=== PATIENT | female | born 1990 | race African-American/Black ===

== ENCOUNTER → 2016-11-02 | Outpatient (CLI) | payer OTHER ==
[~2016-11-02] MED LIST: ATR25 PO
[2016-11-02 14:02] LABS: HEMATOCRIT 42.8 % (37-47); MEAN CELL VOLUME 88.6 fL (80-100); MEAN CORPUSCULAR HEMOGLOBIN 31.9 pg (25-34); MEAN PLATELET VOLUME 12.2 fL (7.4-10.4); PLATELET COUNT 272 K/uL (130-400); RED BLOOD COUNT 4.83 M/uL (4.2-5.4)
[2016-11-02 14:31] LABS: COMPLETE YES; EOSINOPHIL % 1.8 %; HYPERSEGMENTED POLYS 1+; LYMPH ABS # 2.27 K/uL (1.2-3.4); LYMPHOCYTE % 39.8 %; NEUTROPHILS % 35.4 %; VARIANT LYM ABS # 0.86 K/uL
[2016-11-02 14:41] LABS: ALT/SGPT 18 U/L (12-78); AST/SGOT 13 U/L (15-37); BLOOD UREA NITROGEN 12 mg/dl (7-18); BUN/CREATININE RATIO 13.5 (10-20); CALCIUM 9.4 mg/dl (8.5-10.1); CARBON DIOXIDE 26 mmol/L (21-32); CHLORIDE 108 mmol/L (98-107); CREATININE 0.87 mg/dl (0.60-1.20); GLUCOSE 82 mg/dl (70-99); POTASSIUM 3.8 mmol/L (3.5-5.1); SODIUM 138 mmol/L (136-145)
[2016-11-02 14:52] LABS: ALB/GLOB RATIO 0.8 (0.9-2); ALKALINE PHOSPHATASE 79 U/L (45-117)
== END | disposition home or self-care (01) ==
LOC: C.LABBC 11:57
PROVIDERS: ATTEND Physician Assistant
DX: R63.4 Abnormal weight loss (principal)

== ENCOUNTER → 2016-11-08 | Outpatient (CLI) | payer OTHER ==
--- NOTE | 2016-11-08 08:56 | DIAGNOSTIC IMAGING REPORT ---
ABDOMEN COMPLETE (US) CLINICAL HISTORY: R10.9 Abdominal pain COMPARISON STUDY: No previous studies for comparison. FINDINGS: The liver appears sonographically normal. The gallbladder appears sonographically normal. No peripancreatic lesions are visualized. There is no ductal dilatation. The common buttock measures 3 mm pure the spleen measures 7.1 cm in length. No splenic masses are visualized. The right kidney measures 9 cm in length. The left kidney measures 9.1 cm in length. There are no focal renal masses. There is no hydronephrosis. There is no abdominal aortic dilatation. The IVC appears unremarkable. There is a very small pericardial effusion. IMPRESSION: 1. Incidental very small pericardial effusion. Otherwise normal upper abdominal ultrasound. Electronically signed by: Brendan Lr M.D. 11/08/2016 8:55 AM Dictated Date/Time: 11/08/2016 8:52 AM
== END | disposition home or self-care (01) ==
LOC: C.ULTRBC 08:07
PROVIDERS: ATTEND Internal Medicine
DX: R10.9 Unspecified abdominal pain (principal); I31.3 Pericardial effusion (noninflammatory)

== ENCOUNTER 2024-08-13 13:13 | Observation (INO) ==
--- NOTE | 2024-08-13 13:48 | Emergency Department Note ---
Impression & Plan Intractable vomiting with nausea, Abnormal finding of diagnostic imaging ED Provider Note CHIEF COMPLAINT: Abdominal pain HISTORY OF PRESENTING ILLNESS: The patient is a 33-year-old female who arrives to the emergency department for evaluation of abdominal pain with nausea and vomiting since Monday. The patient had a recent ZIPPER JOINER procedure to remove a polyp. She reports since that time she has had worsening, abdominal pain, nausea and vomiting. She states she has never had issues with anesthesia in the past, however, after this event she has had abdominal fullness, LLQ pain, and persistent nausea despite attempts at home with medications. She denies fever, dysuria, vaginal bleeding, or vaginal discharge. She is well appearing, otherwise. REVIEW OF SYSTEMS: See HPI for pertinent positives and pertinent negatives. ALLERGIES: See below MEDICATIONS: See below PAST MEDICAL HISTORY: See below PHYSICAL EXAM: VITALS: Vitals are noted on the nurse's note and reviewed by myself. Vital signs stable. GENERAL: 33-year-old female, in no acute distress, nondiaphoretic, well- developed well-nourished. SKIN: The skin was without rashes, erythema, edema, or bruising. HEAD: Normocephalic atraumatic. HEART: Regular rate and rhythm without murmurs gallops or rubs. LUNGS: Clear to auscultation bilaterally without wheezes, rales or rhonchi. No retractions or accessory muscle use. ABDOMEN: Positive bowel sounds x 4. Soft, TTP, RUQ, LLQ with no rebound tenderness or guarding. NEURO: Patient was alert and oriented to person place and time. No focal neurological deficits. DIFFERENTIAL DIAGNOSIS: Appendicitis, ovarian cyst, ovarian torsion, ectopic , TOA, PID, infections, diverticulitis, UTI, obstruction, mesenteric ischemia, aortic pathology, inflammatory bowel disease, renal colic, PUD, pancreatitis, biliary pathology, hernia, volvulus, constipation, anesthesia complication, postoperative complication, as well as other pathologies. ED COURSE AND MEDICAL DECISION MAKING: MEDICATIONS GIVEN: 1 L NSS bolus, 4 mg IV Zofran, 1.25 mg IV droperidol. MONITOR: Continuous hogshead head matcher: Order was placed for continuous hogshead head matcher. Patient was placed on the hogshead head matcher and continuous pulse ox. Patient was noted to be in normal sinus rhythm at an initial rate of 86 bpm per my interpretation. INTERPRETATION OF LABS: I interpreted the labs with full lab results as below in the lab section of this note. Pertinent lab results discussed in the MDM section below. INTERPRETATION OF IMAGING: Imaging studies were interpreted by myself and read by radiology as per the imaging section of this note. MDM SUMMARY: The patient is a pleasant, 33-year-old female who arrives to the emergency department for evaluation of the above-stated complaint. A saline lock was established, CBC, CMP, lipase, lactic acid, serum , urinalysis were obtained. Lab work shows no leukocytosis, no anemia. CMP is unremarkable. negative. Lipase negative. Lactate 1.2. Urinalysis shows no concerning signs of infection. CT imaging of the abdomen and pelvis with IV contrast was obtained which shows heterogeneous contrast-enhancement of the liver with possible periportal edema, appearing in the interval and allowing for single phase of imaging. Concern for hepatitis is noted per radiology, recommending a right upper quadrant abdominal ultrasound. There is also notation of small bordering on moderate bilateral pleural effusions. The patient's nausea was not controlled during her stay despite IV medication. I do believe the patient requires admission for intractable nausea and vomiting, as well as further evaluation of CT imaging findings. I spoke with Dr. Langley, from GI, who stated he believes the nausea and vomiting is anesthesia associated, and not related to CT imaging findings, however he is agreeable to consulting on the patient during her admission. I spoke with the [facility] hospitalist group, who agreed to accept and evaluate the patient for admission. Please refer to their documentation for further patient workup and care. DIAGNOSIS: Intractable nausea with vomiting, abnormal diagnostic imaging The chart was completed utilizing [employer] Speech voice recognition software. Grammatical errors, random word insertions, pronoun errors, and incomplete sentences are an occasional consequence of this system due to software limitations, ambient noise, and hardware issues. Any formal questions or concerns about the content, text, or information contained within the body of this dictation should be directly addressed to the provider for clarification. Past Med/Surg History Problem List (Updated 08/21/24 @ 07:15 by TED Corey) Abnormal finding of diagnostic imaging (Acute) Abnormal liver CT Intractable vomiting with nausea (Acute) Intractable left lower quadrant abdominal pain Post-operative complication Vitamin B12 deficiency Insomnia Chronic diarrhea MDD (major depressive disorder), recurrent episode, moderate Esophageal dysphagia Migraine Asthma (Chronic) Encounter for pre-operative examination GERD (gastroesophageal reflux disease) Medical History Migraine Chronic diarrhea GERD (gastroesophageal reflux disease) HIV (human immunodeficiency virus infection) [facility] 07[facility]24, "Diagnosed with HIV in .. Recent blood work shows an improvement with a CD4 count. Reports no major changes since starting treatment.. Will continue current HIV medication regimen." Depression PID (acute pelvic inflammatory disease) HPV test positive (08/2021) Cytology wnl/HR HPV +/HPV 16 and 18 negative per records Anxiety Environmental and seasonal allergies Dust allergy Acne Esophageal dysphagia Improved with dilatation Asthma Surgical History Slow to wake up after anesthesia After last colonoscopy/EGD History of D&C History of esophageal dilatation (~09/2019) History of esophagogastroduodenoscopy (EGD) Family History Grandmother (Maternal) Family hx of colon cancer Colorectal cancer Grandmother Cancer Malignant neoplasm of stomach Other No family history of adverse response to anesthesia Denies family history of Ovarian cancer Prostate cancer Myocardial infarction Breast cancer Lung cancer Social History Smoking Status: Never smoker Second Hand Exposure: No; Do You Dip or Chew Tobacco: No; Hx Alcohol Use: Yes Alcohol type: wine Alcohol Intake Frequency: Monthly or Less Hx Substance Use: No Preferred Language: Australian Communication Ability: Effective Visual Impairment: Limited Hearing Ability: Normal Didactic Instructor Required: No Beliefs That Will Affect Care: None marital status: / Current Living Situation: Parent Current Living Situation Comment: Lives with Mother. current occupational status: employed current occupation: [employer] Feels Safe at Home: Yes Childhood Exposure to Second-Hand Smoke: No Diet: regular caffeine: No Dental Care, Regularly: Yes Physical Activity Frequency: 5-6 Times per Week Physical Activity Frequency Comment: walking Seatbelt Use: always Sunscreen Use: Yes Do you think of yourself as: straight/heterosexual Assistive Devices: None Allergies Allergies Allergy/AdvReac Type Severity Reaction Status Date / Time clams Allergy Severe Rash Verified 08/19/24 14:34 No Known Drug Intolerances AdvReac Unknown Verified 08/19/24 14:34 Home Meds Home Medications Medication Instructions Recorded Confirmed lactobacillus combination no.9 4 4 cell PO DAILY 12/08/21 08/19/24 billion cell capsule (Adult 50 Plus Probiotic) mometasone-formoterol HFA 200 2 puff inhalation BID 10/25/23 08/19/24 mcg-5 mcg/actuation aerosol inhaler Previous Rx's Medication Instructions Recorded cetirizine 10 mg tablet 10 mg PO QAM #90 tabs 12/20/22 albuterol sulfate 90 mcg/actuation 1 - 2 puff inhalation Q4 PRN 06/30/23 aerosol inhaler Shortness Of Breath #6.7 grams melatonin 3 mg capsule 3 mg PO HS PRN sleep #1 cap 06/30/23 fluticasone propionate 50 2 spray intranasal DAILY PRN 08/03/23 mcg/actuation nasal allergy symptoms #16 grams spray,suspension (Flonase Allergy Relief) mecobalamin (vitamin B12) 1,000 1,000 mcg PO DAILY #30 tabs 10/23/23 mcg chewable tablet cyproheptadine 4 mg tablet 4 mg PO BID #180 tabs 02/23/24 clindamycin phosphate 1 % lotion 1 applic topical DAILY #60 mL 05/20/24 cabotegravir ER 400 mg/2 See Rx Instructions IM .COMPLEX #4 07/02/24 mL-rilpivirine ER 600 mg/2mL IM mL suspension,ER (Cabenuva) pantoprazole 40 mg tablet,delayed 40 mg PO QAM PRN gerd #90 tabs 07/02/24 release rizatriptan 10 mg disintegrating 10 mg PO Q2H PRN migraine headache 07/02/24 tablet (Maxalt-WORD PROCESSOR) #12 tabs sertraline 100 mg tablet 200 mg (2 x 100 mg) PO DAILY #180 07/02/24 tabs ondansetron HCl 4 mg tablet 4 mg PO DAILY PRN nausea and 08/15/24 vomiting #30 tabs Results & Data (ED) Vital Signs Vital Signs - 24 hr 08/13/24 13:17 08/13/24 13:31 08/13/24 13:36 Temperature 36.5 C Temperature Source Temporal Artery Scan Pulse Rate 86 63 Pulse Rate [Apical] 69 Pulse Strength Normal Respiratory Rate 17 16 Respiratory Effort / Characteristics Non-Labored Spontaneous Non-Labored Respiratory Depth Normal Normal Respiratory Pattern Regular Blood Pressure 134/85 Blood Pressure [Left Arm] 114/72 Blood Pressure Mean 101 Blood Pressure Mean [Left Arm] 86 Blood Pressure Position Sitting Pulse Oximetry 100 97 Oxygen Delivery Method Room Air Room Air Sepsis Recent Fever Within 48 Hours No Sepsis New/Unexplained Change in Mental Status No Sepsis Action Taken by Nursing No Action Required 08/13/24 13:54 Temperature Temperature Source Pulse Rate 57 L Pulse Rate [Apical] Pulse Strength Respiratory Rate Respiratory Effort / Characteristics Respiratory Depth Respiratory Pattern Blood Pressure Blood Pressure [Left Arm] Blood Pressure Mean Blood Pressure Mean [Left Arm] Blood Pressure Position Pulse Oximetry 97 Oxygen Delivery Method Room Air Sepsis Recent Fever Within 48 Hours Sepsis New/Unexplained Change in Mental Status Sepsis Action Taken by Assisted Medications Current Medication List: was personally reviewed by me Laboratory Data Attestation: I reviewed the patient's lab results. 08/14/24 05:28 08/14/24 05:28 Lab Results 08/13/24 08/13/24 08/13/24 Range/Units 13:30 14:13 15:28 WBC 6.38 (4.8-10.8) K/ul RBC 4.73 (4.20-5.40) M/uL Hgb 15.2 (12.0-16.0) g/dl Hct 41.9 (37.0-47.0) % MCV 88.6 (80.0-100.0) fL MCH 32.1 (25.0-34.0) pg MCHC 36.3 H (32.0-36.0) g/dL RDW Std Deviation 41.7 (36.4-46.3) fL RDW Coeff of Ashia 12.8 (11.5-14.5) % Plt Count 276 (130-400) K/uL MPV 12.0 (9.4-12.4) fL Immature Gran % (Auto) 0.6 % Neut % (Auto) 29.3 % Lymph % (Auto) 49.2 % [place] % (Auto) 7.4 % Eos % (Auto) 12.4 % Baso % (Auto) 1.1 % Neut # (Auto) 1.87 (1.40-6.50) K/uL Lymph # (Auto) 3.14 (1.20-3.40) K/uL [place] # (Auto) 0.47 (0.11-0.59) K/uL Eos # (Auto) 0.79 H (0.00-0.50) K/uL Baso # (Auto) 0.07 (0.00-0.20) K/uL Immature Gran # (Auto) 0.04 (0.01-0.20) K/uL Sodium 138 (136-145) mmol/L Potassium 3.5 (3.5-5.1) mmol/L Chloride 104 (98-107) mmol/L Carbon Dioxide 27 (21-32) mmol/L Anion Gap 7 (3-11) BUN 12 (6-23) mg/dl Creatinine 0.82 (0.6-1.2) mg/dl Est Cr Clr Drug Dosing 80.0 ml/min eGFR 96.20 BUN/Creatinine Ratio 14.6 (10-20) Glucose 78 (70-99(Fasting)) mg/dl Lactate 1.2 (0.4-2.0) mmol/L Calcium 9.7 (8.6-10.3) mg/dl Magnesium 1.9 (1.7-2.4) mg/dl Total Bilirubin 0.4 (0.2-1.0) mg/dl AST 14 (13-39) U/L ALT 14 (7-52) U/L Alkaline Phosphatase 91 (34-104) U/L Total Protein 7.9 (6.0-8.3) gm/dl Albumin 4.2 (3.4-5.0) gm/dl Globulin 3.7 (2.5-4.0) gm/dl Albumin/Globulin Ratio 1.1 (0.9-2) Lipase 30 (11-82) U/L HCG, Qual Negative (Negative) Urine Color Yellow Urine Appearance Clear (Clear) Urine pH 6.0 (4.5-7.5) Ur Specific [place] 1.028 (1.000-1.030) Urine Protein Negative (Negative) Urine Glucose (UA) Negative (Negative) Urine Ketones Trace H (Negative) Urine Blood Negative (Negative) Urine Nitrite Negative (Negative) Urine Bilirubin Negative (Negative) Urine Urobilinogen Negative (Negative) Ur Leukocyte Esterase Negative (Negative) Urine Comment Administered Medications Discontinued Medications Droperidol (Droperidol 5 Mg/2 Ml Vial) 1.25 mg IV ONE STA Stop: 08/13/24 19:12 Last Admin: 08/13/24 19:19 Dose: 1.25 mg Documented By: ANSLEY Fluticasone/Vilanterol (Fluticasone/Vilanterol 200/25mcg 14 Puffs/Inhaler) 1 puffs INH DAILY AYLIN Stop: 09/13/24 08:59 Last Admin: 08/15/24 08:53 Dose: 1 puffs Documented By: Admin: 08/14/24 08:46 Dose: 1 puffs Documented By: PITER Sodium Chloride (Nss) 1,000 mls @ 999 mls/hr IV .Q1H1M ONE Stop: 08/13/24 14:53 Last Infusion: 08/13/24 15:17 Dose: Infused Documented By: Admin: 08/13/24 14:12 Dose: 999 mls/hr Documented By: TRUNG Sodium Chloride (Nss) 1,000 mls @ 999 mls/hr IV .Q1H1M ONE Stop: 08/13/24 20:11 Last Infusion: 08/14/24 00:05 Dose: Infused Documented By: Admin: 08/13/24 19:20 Dose: 999 mls/hr Documented By: ANSLEY Lactated Ringer's (Lr) 1,000 mls @ 100 mls/hr IV .Q10H AYLIN Stop: 08/14/24 16:44 Last Infusion: 08/14/24 18:45 Dose: Infused Documented By: Admin: 08/14/24 08:45 Dose: 100 mls/hr Documented By: Infusion: 08/14/24 08:25 Dose: Infused Documented By: Admin: 08/13/24 22:25 Dose: 100 mls/hr Documented By: SANDEE Pantoprazole Sodium (Protonix) 40 mg in 10 mls @ 5 mls/min IV DAILY AYLIN Stop: 09/13/24 08:59 Last Admin: 08/15/24 08:53 Dose: 5 mls/min Documented By: Admin: 08/14/24 08:46 Dose: 5 mls/min Documented By: PITER Prochlorperazine 5 mg/ Syringe 5 mls @ 5 mls/min IV ONE ONE Stop: 08/14/24 16:38 Last Admin: 08/14/24 17:48 Dose: 5 mls/min Documented By: PITER Prochlorperazine 5 mg/ Syringe 5 mls @ 5 mls/min IV Q6H PRN PRN Reason: Nausea And Vomiting Stop: 09/13/24 23:40 Last Admin: 08/15/24 09:05 Dose: 5 mls/min Documented By: PITER Ioversol (Optiray 320 100ml) 90 ml IV ONCE ONE Stop: 08/13/24 15:55 Last Admin: 08/13/24 15:55 Dose: 90 ml Documented By: BUD Melatonin (Melatonin 3 Mg Tab) 3 mg PO HS PRN PRN Reason: Sleep Stop: 09/13/24 00:02 Last Admin: 08/14/24 23:50 Dose: 3 mg Documented By: LOGAN Morphine Sulfate (Morphine Sulfate 4 Mg/Ml 1 Ml Carp\\Vial) 4 mg IV NOW STA Stop: 08/13/24 13:54 Last Admin: 08/13/24 14:12 Dose: 4 mg Documented By: TRUNG Ondansetron HCl (Ondansetron Inj 2 Mg/Ml 2 Ml Vial) 4 mg IV NOW STA Stop: 08/13/24 13:54 Last Admin: 08/13/24 14:11 Dose: 4 mg Documented By: TRUNG Ondansetron HCl (Ondansetron Inj 2 Mg/Ml 2 Ml Vial) 4 mg IV NOW STA Stop: 08/13/24 16:18 Last Admin: 08/13/24 16:21 Dose: 4 mg Documented By: TRUNG Ondansetron HCl (Ondansetron Inj 2 Mg/Ml 2 Ml Vial) 4 mg IV Q6H PRN PRN Reason: Nausea And Vomiting Stop: 09/13/24 00:02 Last Admin: 08/14/24 18:48 Dose: 4 mg Documented By: Admin: 08/14/24 11:40 Dose: 4 mg Documented By: Admin: 08/14/24 00:59 Dose: 4 mg Documented By: DAT Polyethylene Glycol (Polyethylene (Miralax) 17 Gm Pack) 17 gm PO DAILY AYLIN Stop: 09/13/24 08:59 Last Admin: 08/15/24 09:02 Dose: 17 gm Documented By: Admin: 08/14/24 08:45 Dose: 17 gm Documented By: PITER Sertraline HCl (Sertraline Hcl 100 Mg Tablet) 200 mg PO DAILY AYLIN Stop: 09/13/24 08:59 Last Admin: 08/15/24 08:53 Dose: 200 mg Documented By: Admin: 08/14/24 08:46 Dose: 200 mg Documented By: PITER Imaging Data Attestation: I personally reviewed and interpreted this imaging study as follows: Discharge Plan Visit Data Chief Complaint: Abdominal Pain Stated Complaint: ABD PAIN,VOMITING,WEAKNESS ED Provider: Kam Regan ED Midlevel Provider: Verona Soni Discharge Problem: Intractable vomiting with nausea, Abnormal finding of diagnostic imaging Patient Disposition: Admitted As Inpatient Condition: Fair Discharge Instructions Interventions: ED Discharge Assessment Last Done: 08/13/24 23:15
[2024-08-13 14:07] LABS: Basophils # (auto) 0.07 K/uL (0.00-0.20); Basophils % (auto) 1.1 %; Eosinophils # (auto) 0.79 K/uL (0.00-0.50); Eosinophils % (auto) 12.4 %; Hematocrit (blood only) 41.9 % (37.0-47.0); Hemoglobin 15.2 g/dl (12.0-16.0); Immature Granulocytes # (auto) 0.04 K/uL (0.01-0.20); Immature Granulocytes % (auto) 0.6 %; Lymphocytes # (auto) 3.14 K/uL (1.20-3.40); Lymphocytes % (auto) 49.2 %; Mean Corpuscular Hemoglobin 32.1 pg (25.0-34.0); Mean Corpuscular Hgb Conc 36.3 g/dL (32.0-36.0); Mean Corpuscular Volume 88.6 fL (80.0-100.0); Monocytes # (auto) 0.47 K/uL (0.11-0.59); Monocytes % (auto) 7.4 %; Neutrophils # (auto) 1.87 K/uL (1.40-6.50); Neutrophils % (auto) 29.3 %; Platelet Count 276 K/uL (130-400); RDW Coefficient of Variation 12.8 % (11.5-14.5); RDW Standard Deviation 41.7 fL (36.4-46.3); Red Blood Count 4.73 M/uL (4.20-5.40); White Blood Count 6.38 K/ul (4.8-10.8)
[2024-08-13] MEDS: ONDANSETRON INJ 2 MG/ML 2 ML VIAL IV STA ×2 (14:11→16:21)
[2024-08-13] MEDS: MoRPHine SULFATE 4 MG/ML 1 ML CARP\\VIAL IV STA (14:12)
[2024-08-13] MEDS: SODIUM CHLORIDE 0.9% 1,000 ML IV ONE ×2 (14:12→19:20)
[2024-08-13 14:23] LABS: Pregnancy Test, Serum Negative (Negative)
[2024-08-13 14:26] LABS: Albumin Globulin Ratio 1.1 (0.9-2); Albumin Level 4.2 gm/dl (3.4-5.0); BUN Creatinine Ratio 14.6 (10-20); Bilirubin,Total 0.4 mg/dl (0.2-1.0); Calcium 9.7 mg/dl (8.6-10.3); Globulin 3.7 gm/dl (2.5-4.0); Potassium 3.5 mmol/L (3.5-5.1); Total Protein 7.9 gm/dl (6.0-8.3)
[2024-08-13 14:27] LABS: Appearance Urine Clear (Clear); Bilirubin Urine Negative (Negative); Blood Urine Negative (Negative); Color Urine Yellow; Glucose Urine UA Negative (Negative); Ketones Urine Trace (Negative); Leukocyte Esterase Urine Negative (Negative); Nitrite Urine Negative (Negative); Protein Urine Negative (Negative); Specific Gravity Urine 1.028 (1.000-1.030); Urobilinogen Urine Negative (Negative)
[2024-08-13] MEDS: OPTIRAY 320 100ml IV ONE (15:55)
--- NOTE | 2024-08-13 16:14 | CT Scan Report ---
EXAMINATION: Abdomen and pelvis CT with CLINICAL HISTORY: Pain PRIORS: 03/13/2022 TECHNIQUE: Contiguous axial images were obtained through the abdomen and pelvis with the use of intravenous contrast. Sagittal and coronal reformations are supplied. FINDINGS: Small bilateral pleural effusions present, moderately larger in the interval with hypoventilatory changes at the lung bases. The liver is heterogeneous in appearance measuring 16 cm with possible periportal edema. No enhancing mass or intrahepatic ductal dilatation. The gallbladder, portal vein, pancreas, spleen, stomach, adrenals, aorta and IVC are morphologically unremarkable. The kidneys enhance symmetrically. No hydronephrosis. Appendix is normal, image 208, series 3. A moderate amount of formed stool present in the colon. No dilated loops of bowel. No adenopathy, ascites or extraluminal gas. Uterus and adnexa within normal limits with anteverted uterus. Urinary bladder distends normally. In bone windows, no acute or suspicious osseous abnormality. IMPRESSION: 1. Heterogeneous contrast-enhancement of the liver with possible periportal edema, appearing in the interval and allowing for single phase of imaging. If there is right upper quadrant tenderness and/or concern for hepatitis right upper quadrant ultrasound could be considered as well as laboratory values. 2. Small bordering on moderate bilateral pleural effusions. ACT 112: Positive. There are findings on this examination that require communication between the performing entity and the patient following Patient Test Result Information Act ([place] ACT 112) guidelines. Electronically signed by Natalya Grimaldo 08-13-2024 4:14 PM
--- NOTE | 2024-08-13 18:57 | Ultrasound Report ---
EXAMINATION: Pelvic ultrasound complete CLINICAL HISTORY: Weakness intermittent pain following procedure 611 PRIORS: CT AP today TECHNIQUE: Transabdominal pelvic ultrasound was performed with grayscale and color Doppler imaging. FINDINGS: Last menstrual period is unknown. Transvaginal examination was not performed. Uterus measures 8.7 x 3.4 x 4.4 cm. Endometrium measures up to 3.6 mm. The right ovary measures 2.2 x 1.1 x 1.8 cm with normal blood flow. The left ovary measures 4.4 x 2.9 x 2.6 cm with normal blood flow. Complicated cyst present in or beside the left ovary measuring 3.3 x 2.2 x 2.1 cm with septations present. No solid component or enhancement. No free fluid. Echogenic mobile debris identified within the urinary bladder at the edge of the [id number]. IMPRESSION: 1. Left adnexal complicated cyst measuring 3.3 cm with no solid component or adenopathy. 2. Debris within the urinary bladder. Electronically signed by Natalya Grimaldo 08-13-2024 6:57 PM
[2024-08-13] MEDS: DROPERIDOL 5 MG/2 ML VIAL IV STA (19:19)
--- NOTE | 2024-08-13 20:25 | History & Physical Report ---
Date of Service August 13, 2024 Assessment & Plan (1) Post-operative complication: (2) Intractable left lower quadrant abdominal pain: (3) Intractable vomiting with nausea: (4) Abnormal liver CT: Plan Patient is a 33-year-old female with past medical history of migraines, GERD, HIV. Patient had a recent ARMORED CAR GUARD procedure 08/07 presents involved general anesthesia and removing a polyp. She has had worsening intermittent left lower quadrant abdominal pain and nausea/vomiting since. Diagnostic imaging revealed contrast-enhancement of liver with possible periportal edema (recommend ultrasound) and left ovarian cyst measuring 3.3 cm. She is being admitted for postop complications including intractable pain and vomiting. #post op pain and vomiting - Electrolytes stable, no leukocytosis, LFTs WNL, VSS, UA negative. AP CT showed liver enhancement noted below. Pelvic ultrasound showed left complicated cyst measuring 3.3 cm. - Pain control with IV Tylenol prn, morphine prn for breakthrough pain - clear diet, advance as tolerated - hold non-essential po medications - received 2L NSS bolus in ED; continue IVF with LR @ 100 ml/hr x2L - Zofran prn for nausea - Clerical Production Worker consulted - trend CMP, CBC, mag #Liver enhancement/periportal edema - Patient without any right upper quadrant pain. LFTs WNL. Ultrasound ordered GI consulted - trend CMP #GERD - transition PO PPI to IV #constipation - mild, likely 2/2 anesthetic agents. LBM 08/10 or 08/11. AP CT showed moderate amount of formed stool present in colon, no dilated loops. - Miralax daily ordered #HIV - injections q2 months. immunocompromised. #asthma - continue home inhaler #depression - continue sertraline VTE ppx: SCDs, low risk Dispo: med surg obs Admission and Anticipated Discharge Date Admission Date: 08/13/24 History of Present Illness Chief Complaint: abd pain Primary Care Provider: Henry Rodarte DO Patient is a 33-year-old female with past medical history of migraines, GERD, HIV. Patient had a recent ARMORED CAR GUARD procedure 08/07 presents involve general anesthesia and removing a polyp. She has had worsening intermittent left lower quadrant abdominal pain and nausea/vomiting since. Diagnostic imaging revealed contrast-enhancement of liver with possible periportal edema (recommend ultrasound) and left ovarian cyst measuring 3.3 cm. She is being admitted for postop complications including intractable pain and vomiting. Patient seen at bedside. She stated she had a procedure on the and when she got home after she developed left-sided abdominal pain which has been intermittent and worsening since. It is a 9/10 at its worst, currently well- controlled after morphine in the ED. She also has had nausea and vomiting that has remained about the same over the past few days. She vomits approximately 2- 3 times per day and denies any hematemesis until her most recent episode of vomiting this evening which was red, however patient noted she ate watermelon today. She denies any right upper quadrant tenderness. Nausea is currently well-controlled after Zofran and droperidol in the ED. She stated she also is mildly constipated, has only had 1 bowel movement since the procedure which was either on Monday or Monday. She denies feeling bloated or with significant constipation. She denies any dizziness, lightheadedness, chest pain, shortness of breath, rhinorrhea, congestion, abnormal vaginal bleeding. She denies any nicotine or major alcohol use. She did not take her home medications today due to feeling nauseous. She wishes to be full code. Handoff from ER provider stated that GI is agreeable to consult for possible contrast-enhancement of liver however recommend discussion with ARMORED CAR GUARD. Allergies Allergy/AdvReac Type Severity Reaction Status Date / Time clams Allergy Severe Rash Verified 08/13/24 17:36 No Known Drug Intolerances AdvReac Unknown Verified 08/07/24 12:45 Home Medications Medication Instructions Recorded Confirmed Type lactobacillus combination no.9 4 4 cell PO DAILY 12/08/21 08/16/24 History billion cell capsule (Adult 50 Plus Probiotic) cetirizine 10 mg tablet 10 mg PO QAM #90 tabs 12/20/22 08/16/24 Rx albuterol sulfate 90 mcg/actuation 1 - 2 puff inhalation Q4 PRN 06/30/23 08/16/24 Rx aerosol inhaler Shortness Of Breath #6.7 grams melatonin 3 mg capsule 3 mg PO HS PRN sleep #1 cap 06/30/23 08/16/24 Rx fluticasone propionate 50 2 spray intranasal DAILY PRN 08/03/23 08/16/24 Rx mcg/actuation nasal allergy symptoms #16 grams spray,suspension (Flonase Allergy Relief) mecobalamin (vitamin B12) 1,000 1,000 mcg PO DAILY #30 tabs 10/23/23 08/16/24 Rx mcg chewable tablet mometasone-formoterol HFA 200 2 puff inhalation BID 10/25/23 08/16/24 History mcg-5 mcg/actuation aerosol inhaler cyproheptadine 4 mg tablet 4 mg PO BID #180 tabs 02/23/24 08/16/24 Rx clindamycin phosphate 1 % lotion 1 applic topical DAILY #60 mL 05/20/24 08/16/24 Rx cabotegravir ER 400 mg/2 See Rx Instructions IM .COMPLEX #4 07/02/24 08/16/24 Rx mL-rilpivirine ER 600 mg/2mL IM mL suspension,ER (Cabenuva) pantoprazole 40 mg tablet,delayed 40 mg PO QAM PRN gerd #90 tabs 07/02/24 08/16/24 Rx release rizatriptan 10 mg disintegrating 10 mg PO Q2H PRN migraine headache 07/02/24 08/16/24 Rx tablet (Maxalt-COUNTER INTELLIGENCE TECHNICIAN) #12 tabs sertraline 100 mg tablet 200 mg (2 x 100 mg) PO DAILY #180 07/02/24 08/16/24 Rx tabs ondansetron HCl 4 mg tablet 4 mg PO DAILY PRN nausea and 08/15/24 08/16/24 Rx vomiting #30 tabs ondansetron HCl 4 mg tablet 4 mg PO DAILY PRN nausea and 08/15/24 08/16/24 Rx vomiting 4 days #30 tabs Past Med/Surg History Problem List (Updated 08/16/24 @ 00:07 by Background Daemon) Abnormal liver CT Intractable vomiting with nausea Intractable left lower quadrant abdominal pain Post-operative complication Vitamin B12 deficiency Insomnia Chronic diarrhea MDD (major depressive disorder), recurrent episode, moderate Esophageal dysphagia Migraine Asthma (Chronic) Encounter for pre-operative examination GERD (gastroesophageal reflux disease) Medical History (Updated 08/16/24 @ 00:07 by Background Daemon) Migraine Chronic diarrhea GERD (gastroesophageal reflux disease) HIV (human immunodeficiency virus infection) [facility] PCP visit 07/02/24, "Diagnosed with HIV in .. Recent blood work shows an improvement with a CD4 count. Reports no major changes since starting treatment.. Will continue current HIV medication regimen." Depression PID (acute pelvic inflammatory disease) HPV test positive (08/2021) Cytology wnl/HR HPV +/HPV 16 and 18 negative per records Anxiety Environmental and seasonal allergies Dust allergy Acne Esophageal dysphagia Improved with dilatation Asthma Surgical History Slow to wake up after anesthesia After last colonoscopy/EGD History of D&C History of esophageal dilatation (~09/2019) History of esophagogastroduodenoscopy (EGD) Family History Grandmother (Maternal) Family hx of colon cancer Colorectal cancer Grandmother Cancer Malignant neoplasm of stomach Other No family history of adverse response to anesthesia Denies family history of Ovarian cancer Prostate cancer Myocardial infarction Breast cancer Lung cancer Social History Smoking Status: Never smoker Second Hand Exposure: No; Do You Dip or Chew Tobacco: No; Hx Alcohol Use: Yes Alcohol type: wine Alcohol Intake Frequency: Monthly or Less Hx Substance Use: No Preferred Language: Tongan Communication Ability: Effective Visual Impairment: Limited Hearing Ability: Normal Barrel Filler Required: No Beliefs That Will Affect Care: None marital status: / Current Living Situation: Parent Current Living Situation Comment: Lives with Mother. 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 Non-toxic appearing. HEENT- EOMI, mucous membranes dry. Hearing grossly intact. Heart-normal S1 and S2. No murmurs, rubs or gallops. Lungs-clear bilaterally, no respiratory distress, no accessory muscle use. Abdomen-normal bowel sounds and soft. No ascites noted. Tender LLQ. Extremities- no clubbing, cyanosis, or edema. Rheumatologic-normal range of motion. Psychiatric-normal affect. Results & Data Results & Data Vital Signs (Past 12 Hours) Vital Signs Temp Pulse Pulse Resp BP BP Pulse Ox 08/13/24 19:00 61 22 102/61 99 08/13/24 17:37 80 08/13/24 15:15 60 16 104/60 99 08/13/24 13:54 57 L 97 08/13/24 13:36 69 16 114/72 97 08/13/24 13:31 63 08/13/24 13:17 36.5 C 86 17 134/85 100 O2 Del Method 08/13/24 19:00 Room Air 08/13/24 17:37 08/13/24 15:15 Room Air 08/13/24 13:54 Room Air 08/13/24 13:36 Room Air 08/13/24 13:31 08/13/24 13:17 Room Air Code Status & VTE Plan Code Status full VTE Prophylaxis Plan VTE Prophylaxis will be ordered: Yes Supervising Physician Co-Signing Physician Notes I personally saw and examined the patient. I independently reviewed the labs, imaging, problem list, medication list, past medical history and family history. I verified all pinto points and agree with Amber Macias PA-C with the following exceptions and/or additions: 33 year old female presents to the ER with post operative nausea, vomiting and pain with abnormal CT of liver. Underwent Hysteroscopy, Dilation of the Cervix and Curettage with Removal of polyp using myosure procedure performed by Dr Borjas on 08/07 O/E HS RRR, no murmurs, Chest CTBA, Abdo lower abdominal pain without guarding or rebound tenderness A/P Post operative nausea, vomiting and pain - clear diet, advance diet as tolerated, ondansetron for nausea, consult POWDER COAT PAINTER to assess patient in AM but no concern from pelvic US Abnormal CT - no RUQ pain on my exam, consult gastroenterology in AM PG Care Time/CCT Total # of Minutes Spent Total Time Spent with Patient: Total time spent is greater than 50% in coordination of care (as documented) at patient's floor/unit and/or counseling patient: Coding Level of Care Code 07701 INT INP/OBS CARE 3/75MIN Diagnoses Post-operative complication T81.9XXA Intractable left lower quadrant abdominal pain R10.32 Intractable vomiting with nausea R11.[address] R93.2
[2024-08-13 21:14] LABS: Magnesium 1.9 mg/dl (1.7-2.4)
[2024-08-13] MEDS: LACTATED RINGER'S 1,000 ML IV SCH (22:25)
[2024-08-14] MEDS ORDERED: MoRPHine SULFATE 4 MG/ML 1 ML CARP\\VIAL IV PRN (00:03)
[2024-08-14] MEDS ORDERED: DOCUSATE SODIUM 100 MG CAP PO PRN (00:03)
[2024-08-14] MEDS ORDERED: ACETAMINOPHEN 1,000 MG/100 ML VIAL IV PRN (00:03)
[2024-08-14] MEDS ORDERED: MoRPHine SULFATE 2 MG/ML CARP IV PRN (00:03)
[2024-08-14 00:09] VITALS: RESP 16
[2024-08-14] MEDS: ONDANSETRON INJ 2 MG/ML 2 ML VIAL IV PRN (00:59)
--- NOTE | 2024-08-14 01:34 | Ultrasound Report ---
Exam(s): US LIVER EXAM: US Abdomen Limited CLINICAL HISTORY: enchancement of liver, periportal edema, RUQ pain. TECHNIQUE: Real-time ultrasound of the abdomen with image documentation. COMPARISON: CT abdomen and pelvis with contrast performed at 1552 hours FINDINGS: Liver: The liver measures 14.8 cm. No focal abnormality identified. Gallbladder: No cholelithiasis. The gallbladder wall measures 1.9 mm. No pericholecystic fluid. Common bile duct: The common bile duct measures 2.8 mm. Pancreas: Visualized segments of the pancreas are unremarkable. Kidneys: Unremarkable. No stones. No hydronephrosis. The right kidney measures 8.8 x 4.2 x 4.8 cm. Free fluid: No free intraperitoneal fluid noted. Pleural space: Small right pleural effusion, as noted on the previous CT examination. Trace pericardial effusion incidentally noted. IMPRESSION: The liver is unremarkable sonographically. No focal abnormality. The periportal lucency/edema noted on the CT examination is not appreciated sonographically, as expected. No biliary dilatation. Electronically signed by: Hernandez Patel MD 08/14/24 01:33 AM
[2024-08-14 05:55] LABS: Basophils # (auto) 0.04 K/uL (0.00-0.20); Basophils % (auto) 0.6 %; Eosinophils # (auto) 0.39 K/uL (0.00-0.50); Eosinophils % (auto) 5.9 %; Hematocrit (blood only) 37.9 % (37.0-47.0); Hemoglobin 13.3 g/dl (12.0-16.0); Immature Granulocytes # (auto) 0.03 K/uL (0.01-0.20); Immature Granulocytes % (auto) 0.5 %; Lymphocytes # (auto) 2.96 K/uL (1.20-3.40); Lymphocytes % (auto) 44.6 %; Mean Corpuscular Hgb Conc 35.1 g/dL (32.0-36.0); Mean Corpuscular Volume 88.3 fL (80.0-100.0); Monocytes # (auto) 0.61 K/uL (0.11-0.59); Monocytes % (auto) 9.2 %; Neutrophils # (auto) 2.61 K/uL (1.40-6.50); Neutrophils % (auto) 39.2 %; Platelet Count 258 K/uL (130-400); RDW Coefficient of Variation 12.8 % (11.5-14.5); RDW Standard Deviation 41.5 fL (36.4-46.3); Red Blood Count 4.29 M/uL (4.20-5.40); White Blood Count 6.64 K/ul (4.8-10.8)
[2024-08-14 06:14] LABS: Albumin Globulin Ratio 1.3 (0.9-2); Albumin Level 3.8 gm/dl (3.4-5.0); Bilirubin,Total 0.6 mg/dl (0.2-1.0); Calcium 9.3 mg/dl (8.6-10.3); Creatinine Clr Calc Pharmacy 87.4 ml/min; Magnesium 1.8 mg/dl (1.7-2.4); Potassium 4.6 mmol/L (3.5-5.1); Total Protein 6.8 gm/dl (6.0-8.3)
[2024-08-14] MEDS: POLYETHYLENE (MIRALAX) 17 GM PACK PO SCH (08:45)
[2024-08-14] MEDS: PANTOprazole 40 MG/10 ML SYR IV SCH (08:46)
[2024-08-14] MEDS: FLUTICASONE/VILANTEROL 200/25MCG 14 PUFFS/INHALER INH SCH (08:46)
[2024-08-14] MEDS: SERTRALINE HCL 100 MG TABLET PO SCH (08:46)
--- NOTE | 2024-08-14 10:08 | Gastrointestinal Consultation ---
Date of Consultation August 14, 2024 Assessment & Plan (1) Abnormal liver CT: 33 year old female w/ history of MDD, migraines, GERD, chronic constipation, HIV and others below admitted for management of post-operative abdominal pain, nausea/vomiting s/p hysteroscopy, dilation of the cervix and curettage with removal of polyp on 08/07/24 CTAP w/ possible periportal edema, ABD US without report of periportal lucency/edema noted on the CT, LFTs are normal and right sided abdominal discomfort reported. 1. Abnormal imaging CTAP w/ periportal edema ABD US unremarkable LFTs non-elevated 2. Stool burden on CT Bowel regimen with Miralax 1 capful daily 3. Postoperative pain, nausea/vomiting Management per primary service, international coordinator Recall GI as needed. I spent a total of 60 minutes on the date of service in review of patient's record, and previously obtained information in person and appropriate medical visit, discussion and education of plan, with patient and/or caregiver, placing orders for tests/referral/procedures as medically necessary and documentation of pertinent clinical information in patient's medical records for their visit today. Supervising Physician Co-Signing Physician Notes Postop nausea and vomiting. Persistent left lower quadrant pain. Patient is on no narcotics. She does not use marijuana as potential cofactors and persistent nausea. I believe the CT imaging is artifact. At any rate her liver tests are normal ultrasound does not show any significant hepatic abnormalities. I do not think this needs to pursue further. Treat the nausea and MiraLAX for constipation. Patient can be discharged from a GI perspective. History of Present Illness Reason for Consultation: liver enhancement on CT, abd pain Requesting Physician: Avery Tobar Attending Physician: Avery Tobar History of Present Illness 33 year old female w/ history of MDD, migraines, GERD, chronic constipation, HIV and othes below admitted for management of post-operative abdominal pain, [place] sea/vomiting. GI was asked to evaluate for abnormal imaging. Pt was seen and evaluated, chart reviewed. She suggests her symptoms are slightly improved since admission. Pain is less severe. Her nausea/vomiting is better controlled. Notes constipation, last BM was about four days ago. She endorses a history of chronic constipation in the past but this seemed to resolve over the last year or so. Denies RUQ pain. No fevers. Tbili 0.6 AST 13 ALT 9 ALKP 72 ABD US 2025: The liver is unremarkable sonographically. No focal abnormality. The periportal lucency/edema noted on the CT examination is not appreciated sonographically, as expected. No biliary dilatation. Pelvis US 2024: Left adnexal complicated cyst measuring 3.3 cm with no solid component or adenopathy. CTAP 2024: The liver is heterogeneous in appearance measuring 16 cm with possible periportal edema. No enhancing mass or intrahepatic ductal dilatation. The gallbladder, portal vein, pancreas, spleen, stomach, adrenals, aorta and IVC are morphologically unremarkable. A moderate amount of formed stool present in the colon. No dilated loops of bowel. Allergies Allergy/AdvReac Type Severity Reaction Status Date / Time clams Allergy Severe Rash Verified 08/13/24 17:36 No Known Drug Intolerances AdvReac Unknown Verified 08/07/24 12:45 Home Medications Medication Instructions Recorded Confirmed Type lactobacillus combination no.9 4 4 cell PO DAILY 12/08/21 08/13/24 History billion cell capsule (Adult 50 Plus Probiotic) cetirizine 10 mg tablet 10 mg PO QAM #90 tabs 12/20/22 08/13/24 Rx albuterol sulfate 90 mcg/actuation 1 - 2 puff inhalation Q4 PRN 06/30/23 Rx aerosol inhaler Shortness Of Breath #6.7 grams melatonin 3 mg capsule 3 mg PO HS PRN sleep #1 cap 06/30/23 08/13/24 Rx fluticasone propionate 50 2 spray intranasal DAILY PRN 08/03/23 08/13/24 Rx mcg/actuation nasal allergy symptoms #16 grams spray,suspension (Flonase Allergy Relief) mecobalamin (vitamin B12) 1,000 1,000 mcg PO DAILY #30 tabs 10/23/23 08/13/24 Rx mcg chewable tablet mometasone-formoterol HFA 200 2 puff inhalation BID 10/25/23 08/13/24 History mcg-5 mcg/actuation aerosol inhaler cyproheptadine 4 mg tablet 4 mg PO BID #180 tabs 02/23/24 08/13/24 Rx clindamycin phosphate 1 % lotion 1 applic topical DAILY #60 mL 05/20/24 08/13/24 Rx cabotegravir ER 400 mg/2 See Rx Instructions IM .COMPLEX #4 07/02/24 08/13/24 Rx mL-rilpivirine ER 600 mg/2mL IM mL suspension,ER (Cabenuva) pantoprazole 40 mg tablet,delayed 40 mg PO QAM PRN gerd #90 tabs 07/02/24 08/13/24 Rx release rizatriptan 10 mg disintegrating 10 mg PO Q2H PRN migraine headache 07/02/24 08/13/24 Rx tablet (Maxalt-ASSET PROTECTION GREETER) #12 tabs sertraline 100 mg tablet 200 mg (2 x 100 mg) PO DAILY #180 07/02/24 08/13/24 Rx tabs Patient History Medical History (Updated 08/13/24 @ 20:57 by Amber Macias PA-C) Migraine Chronic diarrhea GERD (gastroesophageal reflux disease) HIV (human immunodeficiency virus infection) [facility] [place], "Diagnosed with HIV in .. Recent blood work shows an improvement with a CD4 count. Reports no major changes since starting treatment.. Will continue current HIV medication regimen." Depression PID (acute pelvic inflammatory disease) HPV test positive (08/2021) Cytology wnl/HR HPV +/HPV 16 and 18 negative per records Anxiety Environmental and seasonal allergies Dust allergy Acne Esophageal dysphagia Improved with dilatation Asthma Surgical History Slow to wake up after anesthesia After last colonoscopy/EGD History of D&C History of esophageal dilatation (~09/2019) History of esophagogastroduodenoscopy (EGD) Family History Grandmother (Maternal) Family hx of colon cancer Colorectal cancer Grandmother Cancer Malignant neoplasm of stomach Other No family history of adverse response to anesthesia Denies family history of Ovarian cancer Prostate cancer Myocardial infarction Breast cancer Lung cancer Social History Smoking Status: Never smoker Second Hand Exposure: No; Do You Dip or Chew Tobacco: No; Tobacco Cessation Education Requested by Patient: No Hx Alcohol Use: Yes Alcohol type: wine Alcohol Intake Frequency: Monthly or Less Hx Substance Use: No Preferred Language: Pashto Communication Ability: Effective Visual Impairment: Limited Hearing Ability: Normal Building Construction Ironworker Required: No Beliefs That Will Affect Care: None marital status: / Current Living Situation: Parent Current Living Situation Comment: Lives with Mother. 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 Review of Systems Review of Systems: All other findings negative except as noted in HPI. Physical Exam Constitutional: WD/WN, vitals as above Gastrointestinal (Abdomen): Inspection/Auscultation: normal bowel sounds Percussion/Palpation: + abdomen tender and abdomen soft; no guarding and abdomen not rigid Skin: no rashes, warm and dry Results & Data Vital Signs (Past 12 Hours) Vital Signs Temp Pulse Pulse Resp BP Pulse Ox O2 Del Method 08/14/24 09:33 106/68 08/14/24 07:22 98.2 F 63 16 90/54 L 99 Room Air 08/13/24 23:55 98.2 F 72 16 111/71 100 Room Air 08/13/24 23:55 98.2 F 72 16 111/71 100 Room Air 08/13/24 23:00 77 20 111/77 100 Room Air Laboratory Results 08/14/24 08/13/24 08/13/24 Range/Units 05:28 15:28 14:13 WBC 6.64 (4.8-10.8) K/ul RBC 4.29 (4.20-5.40) M/uL Hgb 13.3 (12.0-16.0) g/dl Hct 37.9 (37.0-47.0) % MCV 88.3 (80.0-100.0) fL MCH 31.0 (25.0-34.0) pg MCHC 35.1 (32.0-36.0) g/dL RDW Std Deviation 41.5 (36.4-46.3) fL RDW Coeff of Ashia 12.8 (11.5-14.5) % Plt Count 258 (130-400) K/uL MPV 12.0 (9.4-12.4) fL Immature Gran % (Auto) 0.5 % Neut % (Auto) 39.2 % Lymph % (Auto) 44.6 % [place] % (Auto) 9.2 % Eos % (Auto) 5.9 % Baso % (Auto) 0.6 % Neut # (Auto) 2.61 (1.40-6.50) K/uL Lymph # (Auto) 2.96 (1.20-3.40) K/uL [place] # (Auto) 0.61 H (0.11-0.59) K/uL Eos # (Auto) 0.39 (0.00-0.50) K/uL Baso # (Auto) 0.04 (0.00-0.20) K/uL Immature Gran # (Auto) 0.03 (0.01-0.20) K/uL Sodium 137 (136-145) mmol/L Potassium 4.6 D (3.5-5.1) mmol/L Chloride 108 H (98-107) mmol/L Carbon Dioxide 23 (21-32) mmol/L Anion Gap 6 (3-11) BUN 6 (6-23) mg/dl Creatinine 0.75 (0.6-1.2) mg/dl Est Cr Clr Drug Dosing 87.4 ml/min eGFR 107.07 BUN/Creatinine Ratio 8.0 L (10-20) Glucose 89 (70-99(Fasting)) mg/dl Lactate 1.2 (0.4-2.0) mmol/L Calcium 9.3 (8.6-10.3) mg/dl Magnesium 1.8 (1.7-2.4) mg/dl Total Bilirubin 0.6 (0.2-1.0) mg/dl AST 13 (13-39) U/L ALT 9 (7-52) U/L Alkaline Phosphatase 72 (34-104) U/L Total Protein 6.8 (6.0-8.3) gm/dl Albumin 3.8 (3.4-5.0) gm/dl Globulin 3.0 (2.5-4.0) gm/dl Albumin/Globulin Ratio 1.3 (0.9-2) Lipase (11-82) U/L HCG, Qual (Negative) Urine Color Yellow Urine Appearance Clear (Clear) Urine pH 6.0 (4.5-7.5) Ur Specific [place] 1.028 (1.000-1.030) Urine Protein Negative (Negative) Urine Glucose (UA) Negative (Negative) Urine Ketones Trace H (Negative) Urine Blood Negative (Negative) Urine Nitrite Negative (Negative) Urine Bilirubin Negative (Negative) Urine Urobilinogen Negative (Negative) Ur Leukocyte Esterase Negative (Negative) Urine Comment 08/13/24 Range/Units 13:30 WBC 6.38 (4.8-10.8) K/ul RBC 4.73 (4.20-5.40) M/uL Hgb 15.2 (12.0-16.0) g/dl Hct 41.9 (37.0-47.0) % MCV 88.6 (80.0-100.0) fL MCH 32.1 (25.0-34.0) pg MCHC 36.3 H (32.0-36.0) g/dL RDW Std Deviation 41.7 (36.4-46.3) fL RDW Coeff of Ashia 12.8 (11.5-14.5) % Plt Count 276 (130-400) K/uL MPV 12.0 (9.4-12.4) fL Immature Gran % (Auto) 0.6 % Neut % (Auto) 29.3 % Lymph % (Auto) 49.2 % [place] % (Auto) 7.4 % Eos % (Auto) 12.4 % Baso % (Auto) 1.1 % Neut # (Auto) 1.87 (1.40-6.50) K/uL Lymph # (Auto) 3.14 (1.20-3.40) K/uL [place] # (Auto) 0.47 (0.11-0.59) K/uL Eos # (Auto) 0.79 H (0.00-0.50) K/uL Baso # (Auto) 0.07 (0.00-0.20) K/uL Immature Gran # (Auto) 0.04 (0.01-0.20) K/uL Sodium 138 (136-145) mmol/L Potassium 3.5 (3.5-5.1) mmol/L Chloride 104 (98-107) mmol/L Carbon Dioxide 27 (21-32) mmol/L Anion Gap 7 (3-11) BUN 12 (6-23) mg/dl Creatinine 0.82 (0.6-1.2) mg/dl Est Cr Clr Drug Dosing 80.0 ml/min eGFR 96.20 BUN/Creatinine Ratio 14.6 (10-20) Glucose 78 (70-99(Fasting)) mg/dl Lactate (0.4-2.0) mmol/L Calcium 9.7 (8.6-10.3) mg/dl Magnesium 1.9 (1.7-2.4) mg/dl Total Bilirubin 0.4 (0.2-1.0) mg/dl AST 14 (13-39) U/L ALT 14 (7-52) U/L Alkaline Phosphatase 91 (34-104) U/L Total Protein 7.9 (6.0-8.3) gm/dl Albumin 4.2 (3.4-5.0) gm/dl Globulin 3.7 (2.5-4.0) gm/dl Albumin/Globulin Ratio 1.1 (0.9-2) Lipase 30 (11-82) U/L HCG, Qual Negative (Negative) Urine Color Urine Appearance (Clear) Urine pH (4.5-7.5) Ur Specific [place] (1.000-1.030) Urine Protein (Negative) Urine Glucose (UA) (Negative) Urine Ketones (Negative) Urine Blood (Negative) Urine Nitrite (Negative) Urine Bilirubin (Negative) Urine Urobilinogen (Negative) Ur Leukocyte Esterase (Negative) Urine Comment PG Care Time/CCT Total # of Minutes Spent Total Time Spent with Patient: Total time spent is greater than 50% in coordination of care (as documented) at patient's floor/unit and/or counseling patient: Coding Level of Care Code 70058 IN/OBS CONSULT LVL 4,60M Diagnoses Abnormal liver CT R93.2
--- NOTE | 2024-08-14 10:55 | OB/GYN Consultation ---
Date of Consultation August 14, 2024 Assessment & Plan (1) Intractable vomiting with nausea: I reviewed imaging and labs. No free fluid in the pelvis or free air in the abdomen, therefore I think surgical injury is unlikely. Ultrasound from 08/13/2024 shows left ovarian cyst measuring 3.3 x 2.2 x 2.1 cm, normal-appearing uterus and endometrium. The comparison to prior ultrasound from 07/23/2024, there is notation of 3.4 cm left ovarian cyst. It is likely the same cyst, and it is similar in size to previous ultrasound. Would advise that she have outpatient follow-up for this cyst with an interval ultrasound. At this time, she states she is feeling better in terms of nausea, has not vomited since 2 AM. Would suggest slowly advancing diet, and continue bowel regimen as constipation may be playing a role in her discomfort as well. From gynecology standpoint, would be appropriate for discharge when she is feeling well and tolerating food and drink. I recommended to her that she be seen in the office for a postoperative follow- up visit, and will contact our office to help with making this appointment. Please contact on-call RACE BOARD ATTENDANT with any questions or concerns. History of Present Illness Reason for Consultation: Postoperative nausea, vomiting, left lower quadrant pain Attending Physician: Avery Tobar History of Present Illness 33-year-old who presented to emergency department for nausea and vomiting x 1 week. Also reporting left lower quadrant pain. She underwent hysteroscopy, dilation and curettage for benign endometrial polyp on 08/07/[address] Borjas. She reports that since surgery, she experienced daily nausea and vomiting, able to tolerate liquids but unable to tolerate food. She had 1 bowel movement since surgery, on Monday. No vaginal bleeding. She had previously been using Depo-Provera, last injection January 2024. She underwent hysteroscopy, dilation and curettage because of the abnormal bleeding since stopping the Depo. Medical history of HIV, has been using Cabenuva injections every 2 months, receiving through [facility]. Started this in December 2023. At the time of my visit, patient was reclining in bed, awake and talkative. She states she is feeling better today, last episode of vomiting was at 2 AM. She is tolerating liquids, has not eaten since last vomitus. She is urinating well. No bowel movement since Monday. This constipation is abnormal-she typically has a bowel movement daily. No pain or bleeding. Allergies Allergy/AdvReac Type Severity Reaction Status Date / Time clams Allergy Severe Rash Verified 08/13/24 17:36 No Known Drug Intolerances AdvReac Unknown Verified 08/07/24 12:45 Home Medications Medication Instructions Recorded Confirmed Type lactobacillus combination no.9 4 4 cell PO DAILY 12/08/21 08/13/24 History billion cell capsule (Adult 50 Plus Probiotic) cetirizine 10 mg tablet 10 mg PO QAM #90 tabs 12/20/22 08/13/24 Rx albuterol sulfate 90 mcg/actuation 1 - 2 puff inhalation Q4 PRN 06/30/23 08/13/24 Rx aerosol inhaler Shortness Of Breath #6.7 grams melatonin 3 mg capsule 3 mg PO HS PRN sleep #1 cap 06/30/23 08/13/24 Rx fluticasone propionate 50 2 spray intranasal DAILY PRN 08/03/23 08/13/24 Rx mcg/actuation nasal allergy symptoms #16 grams spray,suspension (Flonase Allergy Relief) mecobalamin (vitamin B12) 1,000 1,000 mcg PO DAILY #30 tabs 10/23/23 08/13/24 Rx mcg chewable tablet mometasone-formoterol HFA 200 2 puff inhalation BID 10/25/23 08/13/24 History mcg-5 mcg/actuation aerosol inhaler cyproheptadine 4 mg tablet 4 mg PO BID #180 tabs 02/23/24 08/13/24 Rx clindamycin phosphate 1 % lotion 1 applic topical DAILY #60 mL 05/20/24 08/13/24 Rx cabotegravir ER 400 mg/2 See Rx Instructions IM .COMPLEX #4 07/02/24 08/13/24 Rx mL-rilpivirine ER 600 mg/2mL IM mL suspension,ER (Cabenuva) pantoprazole 40 mg tablet,delayed 40 mg PO QAM PRN gerd #90 tabs 07/02/24 08/13/24 Rx release rizatriptan 10 mg disintegrating 10 mg PO Q2H PRN migraine headache 07/02/24 08/13/24 Rx tablet (Maxalt-BRAIN WAVE TECHNICIAN) #12 tabs sertraline 100 mg tablet 200 mg (2 x 100 mg) PO DAILY #180 07/02/24 08/13/24 Rx tabs Patient History Medical History (Updated 08/13/24 @ 20:57 by Amber Macias PA-C) Migraine Chronic diarrhea GERD (gastroesophageal reflux disease) HIV (human immunodeficiency virus infection) [facility] 07/02/24, "Diagnosed with HIV in .. Recent blood work shows an improvement with a CD4 count. Reports no major changes since starting treatment.. Will continue current HIV medication regimen." Depression PID (acute pelvic inflammatory disease) HPV test positive (08/2021) Cytology wnl/HR HPV +/HPV 16 and 18 negative per records Anxiety Environmental and seasonal allergies Dust allergy Acne Esophageal dysphagia Improved with dilatation Asthma Surgical History Slow to wake up after anesthesia After last colonoscopy/EGD History of D&C History of esophageal dilatation (~09/2019) History of esophagogastroduodenoscopy (EGD) Family History Grandmother (Maternal) Family hx of colon cancer Colorectal cancer Grandmother Cancer Malignant neoplasm of stomach Other No family history of adverse response to anesthesia Denies family history of Ovarian cancer Prostate cancer Myocardial infarction Breast cancer Lung cancer Social History Smoking Status: Never smoker Second Hand Exposure: No; Do You Dip or Chew Tobacco: No; Tobacco Cessation Education Requested by Patient: No Hx Alcohol Use: Yes Alcohol type: wine Alcohol Intake Frequency: Monthly or Less Hx Substance Use: No Preferred Language: German Communication Ability: Effective Visual Impairment: Limited Hearing Ability: Normal Floor Steward/Stewardess Required: No Beliefs That Will Affect Care: None marital status: / Current Living Situation: Parent Current Living Situation Comment: Lives with Mother. 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 Physical Exam Physical Exam: Constitutional: Awake, oriented, no acute distress Abdomen: Soft, nondistended, nontender to palpation, except left lower quadrant mild tenderness. Extremities: No edema, no calf tenderness Results & Data Vital Signs (Past 12 Hours) Vital Signs Temp Pulse Pulse Resp BP Pulse Ox O2 Del Method 08/14/24 09:33 106/68 08/14/24 07:22 36.8 C 63 16 90/54 L 99 Room Air 08/13/24 23:55 36.8 C 72 16 111/71 100 Room Air 08/13/24 23:55 36.8 C 72 16 111/71 100 Room Air 08/13/24 23:00 77 20 111/77 100 Room Air PG Care Time/CCT Total # of Minutes Spent Total Time Spent with Patient: Total time spent is greater than 50% in coordination of care (as documented) at patient's floor/unit and/or counseling patient: Coding Level of Care Code 02488 IN/OBS CONSULT LVL 3,45M Diagnoses Intractable vomiting with nausea R11.2
[2024-08-14] MEDS: PROCHLORPERAZINE 5 MG in SYRINGE 4 ML IV ONE (17:48)
[2024-08-14 20:58] VITALS: O2SAT 98
--- NOTE | 2024-08-14 23:41 | Hospitalist Progress Note ---
Date of Service August 14, 2024 Assessment & Plan (1) Post-operative complication: (2) Intractable left lower quadrant abdominal pain: (3) Intractable vomiting with nausea: (4) Abnormal liver CT: Plan Patient is a 33-year-old female with past medical history of migraines, GERD, HIV. Patient had a recent FENDER FINISHER procedure 08/07 presents involved general anesthesia and removing a polyp. She has had worsening intermittent left lower quadrant abdominal pain and nausea/vomiting since. Diagnostic imaging revealed contrast-enhancement of liver with possible periportal edema (recommend ultrasound) and left ovarian cyst measuring 3.3 cm. She is being admitted for postop complications including intractable pain and vomiting. #post op pain and vomiting - Electrolytes stable, no leukocytosis, LFTs WNL, VSS, UA negative. AP CT showed liver enhancement noted below. Pelvic ultrasound showed left complicated cyst measuring 3.3 cm. - Pain control with IV Tylenol prn -Pain now controlled. Stopped morphine as patient did not recieve and this can worsen nausea. - advance diet as tolerated - will switch nausea prn meds to compazine. #Liver enhancement/periportal edema - Patient without any right upper quadrant pain. LFTs WNL. Ultrasound ordered appreciate input from GI #GERD - transition PO PPI to IV #constipation - mild, likely 2/2 anesthetic agents. LBM 08/10 or 08/11. AP CT showed moderate amount of formed stool present in colon, no dilated loops. - Miralax daily ordered #HIV - injections q2 months. immunocompromised. #asthma - continue home inhaler #depression - continue sertraline VTE ppx: SCDs, low risk Dispo: med surg obs d/w GI, FENDER FINISHER Admission and Anticipated Discharge Date Admission Date: August 13, 2024 Subjective Patient reports no new symptoms. Now only with nausea. Physical Exam Physical Exam: The patient is awake, alert and oriented 3 Lungs-clear bilaterally, Abdomen-normal bowel sounds and soft. No ascites noted. Results & Data Results & Data Vital Signs (Past 12 Hours) Vital Signs Temp Pulse Resp BP Pulse Ox O2 Del Method 08/14/24 20:57 36.8 C 70 16 108/66 98 Room Air 08/14/24 15:52 37.0 C 86 16 115/66 99 Room Air PG Care Time/CCT Total # of Minutes Spent Total Time Spent with Patient: Total time spent is greater than 50% in coordination of care (as documented) at patient's floor/unit and/or counseling patient: Coding Level of Care Code 40330 SUB INP/OBS CARE 50MIN Diagnoses Post-operative complication T81.9XXA Intractable left lower quadrant abdominal pain R10.32 Intractable vomiting with nausea R11.[address] R93.2
[2024-08-14] MEDS: MELATONIN 3 MG TAB PO PRN (23:50)
[2024-08-15 07:08] VITALS: BP 105/65; PULSE 77; TEMP 97.9
[2024-08-15] MEDS: PROCHLORPERAZINE 5 MG in SYRINGE 4 ML IV PRN (09:05)
--- NOTE | 2024-08-15 10:20 | Discharge Summary ---
Discharge Summary Date of Service August 15, 2024 Principal Dx & Hospital Course #1 = Principal Diagnosis (1) Post-operative complication: (2) Intractable left lower quadrant abdominal pain: (3) Intractable vomiting with nausea: (4) Abnormal liver CT: Plan Patient is a 33-year-old female with past medical history of migraines, GERD, HIV. Patient had a recent SILHOUETTE ARTIST procedure 08/07 presents involved general anesthesia and removing a polyp. She has had worsening intermittent left lower quadrant abdominal pain and nausea/vomiting since. Diagnostic imaging revealed contrast-enhancement of liver with possible periportal edema (recommend ultrasound) and left ovarian cyst measuring 3.3 cm. She is being admitted for postop complications including intractable pain and vomiting. #post op pain and vomiting - Electrolytes stable, no leukocytosis, LFTs WNL, VSS, UA negative. AP CT showed liver enhancement noted below. Pelvic ultrasound showed left complicated cyst measuring 3.3 cm. - Pain control with IV Tylenol prn -Pain now controlled. Stopped morphine as patient did not recieve and this can worsen nausea. - advance diet as tolerated - will switch nausea prn meds to compazine. #Liver enhancement/periportal edema - Patient without any right upper quadrant pain. LFTs WNL. Ultrasound ordered appreciate input from GI #GERD - transition PO PPI to IV #constipation - mild, likely 2/2 anesthetic agents. LBM 08/10 or 08/11. AP CT showed moderate amount of formed stool present in colon, no dilated loops. - Miralax daily ordered #HIV - injections q2 months. immunocompromised. #asthma - continue home inhaler #depression - continue sertraline VTE ppx: SCDs, low risk Dispo: med surg obs d/w GI, SILHOUETTE ARTIST Admission HPI Per Admitting Provider Patient is a 33-year-old female with past medical history of migraines, GERD, HIV. Patient had a recent SILHOUETTE ARTIST procedure 08/07 presents involve general anesthesia and removing a polyp. She has had worsening intermittent left lower quadrant abdominal pain and nausea/vomiting since. Diagnostic imaging revealed contrast-enhancement of liver with possible periportal edema (recommend ultrasound) and left ovarian cyst measuring 3.3 cm. She is being admitted for postop complications including intractable pain and vomiting. Patient seen at bedside. She stated she had a procedure on the and when she got home after she developed left-sided abdominal pain which has been intermittent and worsening since. It is a 9/10 at its worst, currently well- controlled after morphine in the ED. She also has had nausea and vomiting that has remained about the same over the past few days. She vomits approximately 2- 3 times per day and denies any hematemesis until her most recent episode of vomiting this evening which was red, however patient noted she ate watermelon today. She denies any right upper quadrant tenderness. Nausea is currently well-controlled after Zofran and droperidol in the ED. She stated she also is mildly constipated, has only had 1 bowel movement since the procedure which was either on Monday or Monday. She denies feeling bloated or with significant constipation. She denies any dizziness, lightheadedness, chest pain, shortness of breath, rhinorrhea, congestion, abnormal vaginal bleeding. She denies any n icotine or major alcohol use. She did not take her home medications today due to feeling nauseous. She wishes to be full code. Handoff from ER provider stated that GI is agreeable to consult for possible contrast-enhancement of liver however recommend discussion with SILHOUETTE ARTIST. Discharge Exam GENERAL APPEARANCE NAD, activity normal for age, well developed/ well nourished, no cyanosis, pallor, or diaphoresis. EYES lids/conjunctiva normal. EARS/NOSE/THROAT Mucous membranes moist, nares normal, lips/teeth normal uvula midline without oral pharyngeal erythema, exudate or swelling TMs normal bilaterally. No lymphangitis/lymphedema. HEAD/NECK normocephalic atraumatic, no facial trauma, neck is supple. RESPIRATORY respiratory effort normal, speaks in full sentences, no tripod position, no accessory muscle use. Lungs clear to auscultation without rhonchi, wheezes, rales CARDIAC Regular rate and rhythm, no edema. ABDOMINAL Soft, ND/NT. No evidence of fluid wave. No pulsatile masses on exam, rebound tenderness, Rose sign or pain over Mcburney's point. MUSCLES/EXTREMITIES No abnormal range of motion, no swelling. SKIN Warm, pink and dry. No rashes, dermatoses, petechiae or lesions. NEUROLOGICAL Speech is clear and appropriate. Normal level of consciousness. Gait and coordination are normal. 5/5 strength in all extremities. PSYCH Normal mood and affect. Judgement/competence is appropriate Discharge Plan Discharge Items Patient Disposition: Home - Self-Care Reason For Visit: POSTOPERATIVE PAIN AND VOMITING Discharge Diagnosis: Post operative pain Activity: Resume your previous activity Non-emergency contact: Primary Care Provider Call non-emergency contact if: you have any medication questions Follow-up/Referrals: Henry Rodarte DO [Primary Care Provider] - Diet: Regular Addtl Attending Provider Instructions: Follow up with PMD in 1 week Stand-Alone Forms: [facility] [employer], Work/School Release, Smoking Cessation Medications and DC Order Prescriptions: New ondansetron HCl 4 mg tablet 4 mg PO DAILY PRN (Reason: nausea and vomiting) 4 Days Qty: 30 0RF Continued cetirizine 10 mg tablet 10 mg PO QAM Qty: 90 1RF fluticasone propionate [Flonase Allergy Relief] 50 mcg/actuation spray,suspension 2 spray INTRANASAL DAILY PRN (Reason: allergy symptoms) Qty: 16 0RF mecobalamin (vitamin B12) 1,000 mcg tablet,chewable 1,000 mcg PO DAILY Qty: 30 0RF cyproheptadine 4 mg tablet 4 mg PO BID Qty: 180 3RF Rx Instructions: TAKE 1 TABLET BY MOUTH TWICE A DAY clindamycin phosphate 1 % lotion 1 applic topical DAILY Qty: 60 5RF Rx Instructions: Apply to the face after washing. Adult 50 Plus Probiotic 4 billion cell capsule 4 cell PO DAILY pantoprazole 40 mg tablet,delayed release (DR/EC) 40 mg PO QAM PRN (Reason: gerd) Qty: 90 3RF rizatriptan [Maxalt-ADMINISTRATION SPECIALIST] 10 mg tablet,disintegrating 10 mg PO Q2H PRN (Reason: migraine headache) Qty: 12 5RF Rx Instructions: until response; not to exceed 3 doses in a 24 hour period sertraline 100 mg tablet 200 mg PO DAILY Qty: 180 0RF Cabenuva 400 mg/2 mL- 600 mg/2 mL suspension,extended release See Rx Instructions IM .COMPLEX Qty: 4 0RF Rx Instructions: CABOTEGRAVIR: Inject 2 mL (400 mg) intramuscularly once monthly; RILPIVIRINE: Inject 2 mL (600 mg) intramuscularly once monthly IM. Per pt she is now doing this every 2 months but may go back to once monthly. Managed by Dr Keily JOSEPH melatonin 3 mg capsule 3 mg PO HS PRN (Reason: sleep) Qty: 1 0RF albuterol sulfate 90 mcg/actuation HFA aerosol inhaler 1 - 2 puff INHALATION Q4 PRN (Reason: Shortness Of Breath) Qty: 6.7 3RF mometasone-formoterol 200-5 mcg/actuation HFA aerosol inhaler 2 puff inhalation BID Admission Data Admit Date/Time: 08/13/24 20:53 Attending Provider: Wero Schwarz Admit Provider: Malcom Saravia Primary Care Provider: Henry Rodarte Other Providers: Malcom Saravia; Ivelisse Langley Jr; Adali Elise Hospital Stay Data Consultations 08/13/24 19:12 ED Decision to Admit Stat 08/14/24 00:03 Consult Gastroenterology Routine Consult Gynecology Routine Diagnostic Imagining Performed 08/13/24 13:54 CT abd pelvis IV con only Stat US pelvic complete Stat 08/13/24 20:25 US liver Routine Discharge Instructions Given to Patient (Per Discharging Provider) Follow up with PMD in 1 week Total Time Total Time Spent Total Time Spent (In Minutes): 50 Coding Level of Care Code 94510 INP/OBS DISCH >30 MIN Diagnoses Post-operative complication T81.9XXA Intractable left lower quadrant abdominal pain R10.32 Intractable vomiting with nausea R11.[address] R93.2
== END 2024-08-15 13:27 | disposition home or self-care (01) ==
LOC: 3E 13:13 → ED 13:13 → SUATTDRO 20:53 → 3E 23:15